=== PATIENT | female | born 1995 | race Caucasian/White ===

== ENCOUNTER 2017-11-18 12:21 | Emergency (ER) | payer OTHER, SELFPAY ==
[2017-11-18 12:23] VITALS: BP 137/91; PULSE 96; RESP 16; TEMP 36.8; O2SAT 99; BMI 29.0
--- NOTE | 2017-11-18 12:31 | ED.VISSUMM ---
- ER Visit Summary Date of Service: 11/18/17 Chief Complaint: Left thumb pain History of Present Illness: The patient is a F who is complaining of left thumb pain. She was playing dodge ball when another ball hit her in the thumb. This occurred yesterday. Pain is worse with movement. She has noticed some swelling and bruising. She denies any history of fractures to the hand. She tried ice without any relief. Physical Examination: Vital signs are reviewed. Left hand tenderness to palpation at the base of the thumb. Positive ecchymosis. With range of motion. Test Results: Left hand x-ray reveals a proximal thumb phalanx fracture Emergency Department Course and Treatment: Patient's x-ray does reveal a fracture. She will be given an [employer] prefabricated splint. She will use NSAIDs for pain as well as ice. We will follow-up as needed Treatment Plan: [] Disposition: Discharge Impression: Left thumb proximal phalanx fracture This note was generated with [employer] dictation software. It may contain incorrect words, spelling, and punctuation that were not noted in review of the chart prior to signing ED Disposition - Plan for ED Patient: Chief Complaint: Upper Extremity Injury Referrals: NOT,DEFINED [Primary Care Provider] -
--- NOTE | 2017-11-18 13:22 | ED.DEP ---
ED Disposition - Plan for ED Patient: Disposition: Home or Assisted Living Chief Complaint: Upper Extremity Injury Instructions: ED Fx Thumb Referrals: NOT,DEFINED [Primary Care Provider] -
== END 2017-11-18 13:43 | disposition home or self-care (01) ==
LOC: ED 13:38
PROVIDERS: Emergency Provider Emergency Medicine
DX: S62.515A Nondisplaced fracture of proximal phalanx of left thumb, initial encounter for closed fracture (principal); W21.09XA Struck by other hit or thrown ball, initial encounter; Y93.6A Activity, physical games generally associated with school recess, summer camp and children; Y92.9 Unspecified place or not applicable; Y99.9 Unspecified external cause status
CPT/HCPCS: 73130; 99283